=== PATIENT | female | born 1955 | race Caucasian/White ===

== ENCOUNTER → 2020-10-22 10:30 | Outpatient (CLI) | payer MEDICARE, SELFPAY ==
[2019-10-29 14:54] VITALS: BMI 29.0
--- NOTE | 2020-10-22 10:45 | RAD_ITS ---
STUDY: X-RAY CHEST REASON FOR EXAM: Female, 64 years old. HX of breast ca. TECHNIQUE: PA and lateral views of the chest. COMPARISON: None. FINDINGS: Surgical clips are seen in the right axillary region. Scattered calcified granulomas. The lungs are clear. There is no demonstrated pleural abnormality. Normal size heart. Normal mediastinum and emily. Normal visualized pulmonary arteries. There is atherosclerotic calcification of the aortic arch with tortuosity. There are diffuse degenerative changes of the visualized thoracic spine. Normal visualized ribs, clavicles, and shoulders. There is no demonstrated abnormality of the visualized soft tissue structures of the upper abdomen. RAD/Chest PA and Lateral IMPRESSION: No acute abnormality is seen. Electronically Signed: Ricardo Jaquez, at 14:00 EST , Service support ,
== END ==
PROVIDERS: PCP Family Medicine; Referring Provider Internal Medicine Medical Oncology; Visit Provider Internal Medicine Medical Oncology
DX: Z85.3 Personal history of malignant neoplasm of breast (principal)
CPT/HCPCS: 71046

== ENCOUNTER 2022-03-21 14:43 | Inpatient (IN) | payer MEDICARE, SELFPAY ==
--- NOTE | 2022-03-17 12:35 | EKG12_ITS ---
Test Reason : PRE-OP Blood Pressure : / mmHG Vent. Rate : 055 BPM Atrial Rate : 055 BPM P-R Int : 198 ms QRS Dur : 080 ms QT Int : 422 ms P-R-T Axes : 028 021 050 degrees QTc Int : 403 ms Sinus bradycardia Otherwise normal ECG Confirmed by AZIZA HORTON, JOSH ([id number]), managing editor ERMELINDA ELLIS ([id number]) on 03/18/2022 10:26:35 AM Referred By: Caesar Weldon Confirmed By:JOSH ERVIN MD
[2022-03-17 13:33] LABS: Hematocrit 37.9 % (37-47); Hemoglobin 12.2 g/dL (12.0-15.0); Mean Corp Hgb Conc 32.2 g/dL (32-36); Mean Corpuscular Hgb 30.5 pg (27.0-32.0); Mean Corpuscular Volume 94.8 fL (81-99); Platelet Count 267 K/mm3 (150-450); RBC Distribution Width CV 12.2 % (11.6-14.6); RBC Distribution Width SD 42.6 fl (35.1-43.9)
[2022-03-17 13:49] LABS: International Normalized Ratio 1.1; Prothrombin Time (Protime)PT. 13.4 SECONDS (11.7-14.9)
[2022-03-17 13:50] LABS: Partial Thromboplast Time 30.5 Seconds (24.1-36.2)
[2022-03-17 13:58] LABS: AST(SGOT) 13 U/L (15-37); Alanine Aminotransfer ALT/SGPT 24 U/L (13-56); Albumin, Serum 3.5 g/dL (3.2-5.0); Alkaline Phosphatase 22 U/L (45-117); Anion Gap 5 (5-15); BUN 17 mg/dL (7-18); BUN/Creat Ratio 19.2 RATIO (10-20); Chloride 107 mmol/L (98-107); Creatinine, Serum 0.89 mg/dL (0.55-1.02); EST Glomerular Filtration Rate 68 mL/min (>60); Est Glom Filt Rate - Afr Amer 82 mL/min (>60); Globulin 3.6 g/dL (2.2-4.2); Glucose 149 mg/dL (74-106); Magnesium 2.3 mg/dL (1.6-2.6); Potassium 3.5 mmol/L (3.5-5.1); Protein, Total 7.1 g/dL (6.4-8.2); Sodium Level 140 mmol/L (136-145)
--- NOTE | 2022-03-20 21:59 | HP.PCM_ITS ---
History and Physical Date of Admission: 03/21/22 Surgical History and Physical Kaylynn Plaza, a 66 year old female 2 0 0 0 2, presents for FAM/BSO on March 21, 2022. -- 17 cm Right Cystic Ovary -- Recent CT scan found ovarian cyst and gall stone. States that she gets dull right side pain at times. Hx of breast cancer, states that she has not had menses since taking tamoxifen in 2004, bilateral mastectomy completed. No known drug allergies, currently taking no medications. Cyst found in ovary which began seen in ER, 02/20/22. Kaylynn claims it started Nausea went to ER and has been present 02/20/22. It occurs since 02/20/22. It is located in the Ovary. Associated signs and symptoms are mastectomy for BRCA. Additional comments are: Had nausea, also has gall stone. Additional comments are: CT scan showed complex ovary; u/s shows 17 cm right ovary with single septation and normal EM stripe; CA 125 was high normal. MEDICATIONS HISTORY: Patient is also takin. No Meds ALLERGIES: No Known Drug Allergies Infections - none Illnesses - none Hospitalizations - Breast cancer in 2004 Review of Systems: GENERAL - Denies fever, or chills SKIN - Denies skin changes EYES - Denies visual changes EARS - Denies difficulty hearing NOSE - Denies nasal congestion or bleeding MOUTH - Denies sore throat or difficulty swallowing NECK - Denies pain or swelling RESPIRATORY - Denies shortness of breath or wheezing CARDIOVASCULAR - Denies palpitations or chest pain GASTROINTESTINAL - Right side dull pain at times. GENITOURINARY - Denies dysuria, frequency of urination, incontinence of urine MUSCULOSKELETAL - Denies joint or muscle pain NEUROLOGICAL - Denies localized numbness or weakness PSYCHIATRIC - Denies depression or anxiety ENDOCRINE - Denies heat or cold intolerance, weight loss or gain HEMATO-IMMUNOLOGIC - Denies excesive bleeding with cuts SOCIAL HISTORY: Alcohol Use - denies drinking Smoking - denies smoking Diet - no particular diet Lifestyle - Exercise - regular and active Employer - [employer] Illicit Drug Use - denies use of street drugs Sexual Activity - sexually inactive Residence - lives with Place of - [place], [place] Spouse-Sig Other Name - Aime Barnett Children Name(s) - Noel Hernandez Control - postmenopausal FAMILY HISTORY: MENSTRUAL HISTORY: LMP Known?- Postmenopausal PAST PREGNANCIES: Total Pregnancies - 2; Full Term Pregnancies - 2; Premature - 0; Abortions, Induced - 0; Abortions, Spontaneous - 0; Ectopics - 0; Multiple Births - 0; Living Children - 2 SURGICAL HISTORY: 1. Bilateral Masectomy 2004 PHYSICAL EXAM BP- 140/84 L lower arm Weight- 164.07949 lbs Height- 63 inch BMI:29.1 CONSTITUTIONAL - NAD, well nourished, and well developed SKIN - No rash, lesions, or ulcers HEENT - Normocephalic, PERRLA, EOMI NECK - No nodes, no nuchal rigidity and thyroid normal size and texture LYMPH NODES - Palpation of lymph nodes in neck and groins within normal limits LUNGS - CTA x2 without wheezes, crackles or rales CARDIAC - Regular rate and rhythm without rubs, murmurs, or gallops ABDOMEN - Without hepatosplenomegaly, distention, masses, rebound, or guarding; normal bowel sounds; no hernias EXTREMITIES - No edema or calf tenderness NEUROLOGICAL - Cranial nerves II-XII grossly intact PSYCHIATRIC - A and O to time, place, person, mood and affect External Genitial Vagina - non-tender without lesions Urethra/Urethral Meatus - non-tender Bladder - non-tender Vagina - loss of rugae Cervix - without cervical motion tenderness and has normal size and features without evident lesions Uterus - 5-6 cm in size, mobile and nontender Adnexa - clear without massess or tenderness and 15 cm cystic mass ASSESSMENT/PLAN: 1. Ovarian Cyst Ot/unspec Large cystic mass but CA-125 and u/s suggests benign process. Discussed options and will proceed with FAM/BSO. Discussed RBAs and all questions answered.
[2022-03-21] VITALS (11 sets, daily range): BP systolic 124–202; BP diastolic 58–104; PULSE 53–58; RESP 16; TEMP 36–37.3; O2SAT 96–100; BMI 28.8; BMI 29.7; BMI 29.8
[2022-03-21 10:40] LABS: Bedside Glucose 78 mg/dL (74-106)
[2022-03-21] MEDS: Lactated Ringers 1,000 ML 40 ML IV (10:49)
[2022-03-21] MEDS: Gabapentin 600 MG Tablet PO (10:52)
[2022-03-21] MEDS: Acetaminophen 500 MG Tablet 1000 MG PO ×3 (10:52→23:10)
--- NOTE | 2022-03-21 10:53 | SUR.PREOP ---
PATIENT STATES SHE HAD A BILATERAL MASTECTOMY 17 YEARS AGO, LYMPH NODES TAKEN FROM BOTH SIDES, BUT FEWER TAKEN ON THE LEFT. PATIENT STATES SHE HAS HAD IV'S ON THE LEFT ARM IN THE PAST.
[2022-03-21] MEDS: Cefazolin 2 GM in 0.9% Normal Saline 100 ML IV (13:05)
--- NOTE | 2022-03-21 13:08 | OP.PCM_ITS ---
Report of Operation Date of Procedure: 03/21/22 Pre-Operative Diagnosis: Large Ovarian Cyst Post-Operative Diagnosis: Large Ovarian Cyst Surgery/Procedure Performed:: Total abdominal hysterectomy and bilateral salpingo-oophorectomy Description of Surgical Findings:: 6 cm uterus with 17 cm right ovarian cyst. 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 Surgeon: Caesar Weldon audio specialist: Cherry Sibley Type of Anesthesia: General (Endotracheal) Anesthesiologist: Jarad Davies Specimen's removed: Uterus and bilateral fallopian tubes and ovaries Drains: Ochoa to straight drain Estimated Blood Loss (mL): 100 cc Fluids Replaced: Crystalloid Description of Procedure: Surgeon: Caesar Weldon MD, FACOG Indications: This is a 66-year-old patient who was recently noted to have a 17 cm cystic ovary. There is a single septation and CA125 suggest that this is benign. Given this the patient desires that we proceed with the above procedure. She has been counseled regarding the risk and indications of this procedure including the possibility of bleeding, infection, and injury to surrounding structures such as bowel bladder. All questions were answered. Procedure: Patient was taken to the operating room where after induction of general anesthesia she was prepped and draped in the usual sterile fashion. A Ochoa catheter was placed. The abdomen was entered through a midline incision and peritoneal cavity was entered bluntly. A large right cystic ovary was delivered and right infundibulopelvic ligament was ligated with multiple interrupted 0 Vicryl sutures. This was sent to pathology for frozen section which eventually returned a diagnosis of likely benign mucinous cystadenoma. [place] retractor was placed. Round ligaments were identified and ligated with 0 Vicryl suture. Infundibulopelvic ligaments were ligated x2. A bladder flap was developed and progressive bites were then taken down on either side of the uterine cervix ligating each pedicle with 0 Vicryl suture. Final bites across the vaginal cuff incorporated the uterosacral ligaments into the vaginal cuff using 0 Vicryl suture and multiple [id number] sutures were placed across the vaginal cuff. Vaginal cuff and pelvic sidewall pedicles were oversewn where necessary to achieve hemostasis. Santosh was placed to help with postoperative hemostasis after the pelvis was copiously irrigated removing all clot. [place] retractor was removed and peritoneum was closed with running 3-0 Vicryl suture. Fascia was closed with running looped 0 PDS suture. Subcutaneous tissue was copiously irrigated with saline solution before closing with 3-0 Vicryl suture. 3-0 Monocryl suture was then used in running fashion to reapproximate skin edges area and Steri-Strips placed across the incision. A Mepilex dressing was placed across the incision. Patient tolerated the procedure well was taken to recovery room in satisfactory condition; sponge instrument and needle counts were all reportedly correct. Estimated blood loss for the case was 100 cc. Ancef 2 g IV was given prior to beginning the operative procedure. There were no apparent complications of the surgery. Specimen to pathology was uterus and bilateral fallopian tubes and ovaries. Grafts/Implants Used: None Complications None Admit VTE Documentation VTE Present on Admission: Yes VTE Mechan Device Prophylaxis: SCD's VTE Pharm Prophylaxis ordered?: Yes
--- NOTE | 2022-03-21 13:35 | OV_PTH ---
PATIENT: KEVEN HANKS LOC: MS3 U#:[id number] AGE/SX: 66/F ROOM: [facility] [place] RE03/21/[address]: Dr. Caesar Weldon MD : 1955 BED: 1 DIS: 03/23/2022 SPEC #: [id number] RECD: 03/21/22 13:43 STATUS: SARAH MARTINEZ #: [id number] BECKA: 03/21/22 13:[address]: Caesar Weldon DEPT: SURGICAL PATHOLOGY RECD BY: Ligia Cleary ENTERED: 03/22/22 08:10 SP TYPE: OVARY OTHR DR: Dr. Anel Rosario MD Tissues: A - OVARIAN CYST B - Uterus, NOS Procedures: Frozen Section (charge) Special Stain Group II Mucicarmine Stain (control) Surgery Specimen Level V HEADER OPERATION: ERAS, Hysterectomy, total abdominal hysterectomy, bilateral salpingectomy PRE-OP DIAGNOSIS: Ovarian cyst TISSUE SUBMITTED: A - Right ovary and fallopian tube, B - Cervix, uterus, left fallopian tube and ovary FROZEN SECTION DIAGNOSIS A. Right fallopian tube and ovary, right salpingo-oophorectomy: Mucinous cystadenoma. Negative for malignancy. SJ:adryan 03/22/2022 MICROSCOPIC DIAGNOSIS A. 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 Fallopian tube - no pathologic diagnosis. See comment. B. Cervix, uterus, left fallopian tube and ovary, total abdominal hysterectomy and left salpingo-oophorectomy: Cervix ? chronic cystic cervicitis. Endometrium ? inactive endometrium with cystic changes. Myometrium ? intramural leiomyoma (0.3 cm in greatest dimension). - Focal adenomyosis. Left fallopian tube - no pathologic diagnosis. Left ovary ? Simple serous cystadenofibroma (1.5 cm in greatest dimension). - Kathia tumor (0.4 cm in greatest dimension). DEANNA:adryan 03/23/2022 COMMENT A. Mucin stain with matched in used in the evaluation. Tumor cells are positive for mucin. Case has been reviewed in consultation with Dr. Murguia who concurs with the above diagnosis. IDC:AM MICROSCOPIC DESCRIPTION Slides are reviewed. GROSS DESCRIPTION A - Received fresh for frozen section diagnosis labeled with the patient's name is a specimen designated right fallopian tube and ovary. The specimen consists of a salpingo-oophorectomy specimen consisting of a large cystic ovary and overlying fallopian tube. The cystic ovary measures 22 x 20 x 13 cm and weighs 2070 gm. The outer surface is smooth and is inked black. Sections reveal multiloculated cystic ovary filled with clear mucoid fluid. No papillations are identified. The cyst wall measures 0.1 to 0.2 cm in thickness. Presser All Around sections from the cystic ovary are submitted for frozen section diagnosis. The fallopian tube measures 4 cm in length and 0.5 cm in diameter. The fimbrial end is identified. Sections reveal unremarkable cut surfaces. No tubo-ovarian adhesions are noted. Presser All Around sections are submitted in six cassettes as follows: 1 ? frozen section, cystic ovary, 2 - fallopian tube, entirely submitted, 3-6 - cystic ovary. / SJ:rg 03/22/2022 B - Received in fixative is one container labeled with the patient's name and designated cervix, uterus, left fallopian tube and ovary. The specimen consists of a hysterectomy specimen consisting of uterus with cervix and attached left fallopian tube and ovary. The uterus with cervix weighs 36 gm and measures 8.5 x 4.5 x 2.5 cm. The serosal surface is londono, glistening. The ectocervical mucosa is unremarkable. The external os is pinpoint in contour. The endocervical canal measures 3.6 cm in length and the endocervical mucosa is londono, glistening and unremarkable. The triangular endometrial cavity measures 4 cm in length and up to 1.5 cm in width. The endometrium is londono, glistening without any mass lesion and measures <0.1 cm in thickness. Sections of the uterine wall reveal one small nodular mass measuring 0.3 cm in greatest dimension. The uninvolved uterine wall measures up to 1.2 cm in thickness. The left fallopian tube measures 6.5 cm in length and 0.4 cm in diameter. The fimbrial end is identified. No tubo-ovarian adhesions are noted. The left ovary measures 2 x 1 x 0.7 cm. Sections reveal two cysts measuring 0.2 and 0.3 cm in greatest dimension. Presser All Around sections are submitted in eight cassettes as follows: 1 - anterior cervix, 2 - posterior cervix, 3 & 4 - anterior uterine wall, 5 & 6 - posterior uterine wall (6 also contains the small nodular mass), 7 - left fallopian tube, 8 - left ovary, entirely submitted. / DEANNA:adryan 03/22/2022 TC:1 CPT: 82496 x2, 31832, 09268
[2022-03-21] MEDS: Ketorolac 15 MG/ML Vial IV ×2 (17:11→23:09)
[2022-03-21] MEDS: oxyCODONE 5 MG Tablet PO (17:12)
[2022-03-21] MEDS: 0.9% Saline Lock 10 ML Syringe IV (17:12)
[2022-03-21] MEDS: Cefazolin 1 GM/50 ML BAG IV (21:33)
[2022-03-21] MEDS: Enoxaparin 40 MG/0.4 ML Syringe SC (21:33)
[2022-03-21] MEDS: Docusate Sodium 100 MG Capsule PO (21:33)
[2022-03-21] MEDS: Ondansetron ODT 4 MG Tablet PO (23:26)
[2022-03-22 00:42] VITALS: BP 164/63; PULSE 61; RESP 16; TEMP 37; O2SAT 96; BMI 29.8
[2022-03-22] MEDS: Cefazolin 1 GM/50 ML BAG IV (04:33)
[2022-03-22 04:38] VITALS: BP 149/63; PULSE 78; RESP 16; TEMP 36.9; O2SAT 96; BMI 29.8
[2022-03-22] MEDS: Ketorolac 15 MG/ML Vial IV ×4 (05:06→23:06)
[2022-03-22] MEDS: Acetaminophen 500 MG Tablet 1000 MG PO ×4 (05:06→23:06)
[2022-03-22 06:24] LABS: Hemoglobin 11.1 g/dL (12.0-15.0); Mean Corp Hgb Conc 32.6 g/dL (32-36); Mean Corpuscular Hgb 30.7 pg (27.0-32.0); Mean Corpuscular Volume 93.9 fL (81-99); Mean Platelet Vol. 8.9 fl (6.2-12.0); Platelet Count 303 K/mm3 (150-450); RBC Distribution Width CV 12.4 % (11.6-14.6); RBC Distribution Width SD 42.8 fl (35.1-43.9); Red Blood Count 3.62 M/mm3 (4.2-5.4); White Blood Count 8.2 K/mm3 (4.4-11.0)
[2022-03-22 06:53] LABS: EST Glomerular Filtration Rate 77 mL/min (>60); Est Glom Filt Rate - Afr Amer 93 mL/min (>60); Estimated Creatinine Clearance 56.45 ml/min
[2022-03-22 07:16] VITALS: O2SAT 96
[2022-03-22 07:18] VITALS: BP 151/62; PULSE 69; RESP 16; TEMP 36.9; O2SAT 96
--- NOTE | 2022-03-22 10:10 | CASEMGMT ---
RN CM Face to Face with patient for initial transition planning/care coordination assessment. RN CM introduced self and role at [facility]. Patient lying in bed, alert and oriented. Patient willing to participate in assessment and is able to answer all questions appropriately. Care providers, pharmacy, and demographics verified. Patient wishes to discharge home, denies need for home health at this time. Patient states she has no further needs or concerns at this time. CM to follow for discharge planning needs that may arise. 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 Patient states she is independent and able to ambulate stairs. Transportation: Driving service, son DME/HHC: Patient states she has shower chair, cane, and grab bars at home. No previous HHC or SNF. Disposition Plan: Patient to discharge home with family support and follow-up plans in place. Elsie GUADALUPE, RN, CM
[2022-03-22] MEDS: Docusate Sodium 100 MG Capsule PO ×2 (10:31→22:06)
[2022-03-22] MEDS: Enoxaparin 40 MG/0.4 ML Syringe SC (10:31)
[2022-03-22] MEDS: 0.9% Saline Lock 10 ML Syringe IV ×2 (11:43→23:07)
--- NOTE | 2022-03-22 12:54 | PCM.PN.OB ---
Subjective Subjective Pt without complaints. Tolerating diet better. Denies flatus. Ochoa still in this AM. Objective Data Objective Data Wound CDI covered with Mepilex dressing. Minimal vaginal bleeding. CBC OK and UOP OK. Vital Signs: Vital Signs Temp Pulse Resp BP Pulse Ox 98.4 F 69 16 151/62 H 96 03/22/22 07:18 03/22/22 07:18 03/22/22 07:18 03/22/22 07:18 03/22/22 07:18 Oxygen Flow Rate (L/min) 2 Oxygen Delivery Method Room Air Weight: 168 lb 3.403 oz Body Mass Index (BMI) 29.7 Intake & Output: Intake and Output for Last 24 Hours 03/20/22 03/21/22 03/22/22 23:59 23:59 23:59 Intake Total 2497 / 2497 50 / 50 Output Total 1900 / 1900 275 / 275 Balance 597 / 597 -225 / -225 Lab / Micro Data Result Diagrams: 03/22/22 05:48 03/22/22 05:48 Labs: Laboratory Results - last 24 hr 03/22/22 05:48: WBC 8.2, RBC 3.62 L, Hgb 11.1 L, Hct 34.0 L, MCV 93.9, MCH 30.7, MCHC 32.6, RDW Std Deviation 42.8, RDW Coeff of Nayeli 12.4, Plt Count 303, MPV 8.9 03/22/22 05:48: Creatinine 0.80, Estim Creat Clear Calc 56.45, Est GFR (MDRD) Af Amer 93, Est GFR (MDRD) Non-Af 77 Micro: Microbiology 03/21/22 10:25 Interface Orders SARS-CoV-2 Antigen (Rapid) - Final Assessment & Plan (1) Ovarian cyst, complex: PLAN: Doing well POD 1 s/p FAM/BSO for large right ovarian cyst. Will try abdominal binder and encourage ambulation/shower. Continuing present care. Anticipate release tomorrow.
[2022-03-22 14:02] VITALS: BP 156/80; PULSE 60; RESP 16; TEMP 36.8; O2SAT 100
[2022-03-22 20:25] VITALS: BP 146/61; PULSE 58; RESP 16; TEMP 36.6; O2SAT 98; BMI 29.8
[2022-03-23 02:13] VITALS: BP 152/61; PULSE 56; RESP 16; TEMP 36.6; O2SAT 96
[2022-03-23] MEDS: Acetaminophen 500 MG Tablet 1000 MG PO (05:24)
[2022-03-23] MEDS: Ketorolac 15 MG/ML Vial IV (05:24)
[2022-03-23] MEDS: 0.9% Saline Lock 10 ML Syringe IV (05:25)
[2022-03-23 07:48] VITALS: O2SAT 95
[2022-03-23 08:15] VITALS: BP 159/64; PULSE 60; RESP 16; TEMP 36.7; O2SAT 97
[2022-03-23] MEDS: Docusate Sodium 100 MG Capsule PO (09:23)
[2022-03-23] MEDS: Enoxaparin 40 MG/0.4 ML Syringe SC (09:23)
--- NOTE | 2022-03-23 09:23 | PCM.PN.OB ---
Subjective Subjective Patient without complaints. Tolerating pain well without narcotic pain medication relying on IV Toradol and p.o. Tylenol. Positive flatus. Minimal vaginal bleeding reported. Wound is without bleeding with small amount of oozing noted on dressing. Objective Data Objective Data Vital Signs: Vital Signs Temp Pulse Resp BP Pulse Ox 98.1 F 60 16 159/64 H 97 03/23/22 08:15 03/23/22 08:15 03/23/22 08:15 03/23/22 08:15 03/23/22 08:15 Oxygen Flow Rate (L/min) 2 Oxygen Delivery Method Room Air Weight: 168 lb 3.403 oz Body Mass Index (BMI) 29.7 Intake & Output: Intake and Output for Last 24 Hours 03/21/22 03/22/22 03/23/22 23:59 23:59 23:59 Intake Total 2497 / 2497 50 / 50 Output Total 1900 / 1900 1100 / 1100 750 / 750 Balance 597 / 597 -1050 / -1050 -750 / -750 Lab / Micro Data Result Diagrams: 03/22/22 05:48 03/22/22 05:48 Micro: Microbiology 03/21/22 10:25 Interface Orders SARS-CoV-2 Antigen (Rapid) - Final Assessment & Plan (1) Ovarian cyst, complex: PLAN: Doing well postoperative day #2 status post FAM/BSO. Will discharge to home with routine instructions.
--- NOTE | 2022-03-23 09:24 | PCM.DC ---
Discharge Instructions Diet Discharge Diet: No restrictions (do what you feel comfortable, but do not over do it. You may climb stairs, just use caution and hold the railing.) Activity May resume sexual activity in: 6 weeks (nothing in the vagina.) Lifting Restrictions: 25 pounds for 6 weeks. Additional Activity Instructions:: Nothing in the vagina for 6 weeks please; no lifting more than 20-25 lbs for 6 weeks. Use Ibuprophen 800 mg orally every 8 hours as needed for pain. Can also add Tylenol 1000 mg every 8 hours if needed for pain. Drink lots of water. Call if bleeding more than a pad per hour. Use the colace as constipation is a big issue after this type of surgery. Steps and walking are OK. Activity is encouraged but do not over do it !! Dressing / Incision Call your doctor if your incision/area has: Continuous Slow Oozing, Sudden Increased Bleeding, Increased Pain/ Swelling, Increased Redness and Foul Smelling Discharge Call your doctor if you observe: Fever of 101 or Higher, Inability to urinate, Inability to have a bowel movement, Using more than 1 pad per hour and - (Some vaginal bleeding may be noted for up to 4-8 weeks.) Cleanse incision/area with: - (Let the soapy water run over your incision, rinse and pat dry.) Additional Dressing/Incision Instructions:: The white strips (Steri Strips) on your incision will fall off on their own. Follow Up Care Please Follow Up With: Caesar Weldon MD When: Call [phone] for an appointment to be seen in 2 weeks. Test Results: Test results from this visit will be discussed in further detail at your follow-up appointment, if applicable. Discharge Plan Admission Admit Date/Time: 03/21/22 14:43 Primary Reason for Your Visit: Abdominal Hysterectomy and Bilateral Ovarian Removal Attending Provider: Caesar Weldon Primary Care Provider: Anel Rosario Discharge Orders/Prescriptions Prescriptions: New docusate sodium 100 mg tablet 100 mg PO BID PRN (Reason: constipation) Qty: 60 RF: 1 Continued Co Q-10 100 mg Softgel 100 MG capsule 120 mg PO DAILY RF: 0 Garlic 500 MG tablet 1,000 mg PO DAILY RF: 0 Calcium Carb/Vitamin D 1 tab PO TID RF: 0 Vision Formula Softgel capsule 1 cap PO DAILY RF: 0 elderberry fruit 200 mg Capsule 200 mg PO DAILY RF: 0 Referrals / Follow Up: Anel Rosario MD [Primary Care Provider] - Disposition Disposition (needs filled in before D/C Order can be placed): Home, Self Care
[2022-03-23 11:23] VITALS: BP 169/87; PULSE 64; RESP 16; TEMP 36.6; O2SAT 100
== END 2022-03-23 11:43 | disposition home or self-care (01) | DRG 743 ==
LOC: SDC 16:17 → MS3 16:17
PROVIDERS: Anesthesiology; Admitting Provider Obstetrics & Gynecology; PCP Family Medicine; Referring Provider Obstetrics & Gynecology; Visit Provider Obstetrics & Gynecology
PROC: 0UT90ZZ Resection of Uterus, Open Approach (ICD-10-PCS; CPT 58150; principal; 2022-03-21 11:40)
DX: D27.0 Benign neoplasm of right ovary (principal); K80.20 Calculus of gallbladder without cholecystitis without obstruction; Z85.3 Personal history of malignant neoplasm of breast; Z90.10 Acquired absence of unspecified breast and nipple
CPT/HCPCS: 36415; 80053; 82565; 82962; 83735; 85027; 85610; 85730; 86850; 86900; 86901; 87426; 88305; 88307; 88313; 88331; 93005; 94762; 99251; J7120; A4216; G0463; J2405; J3475

== ENCOUNTER 2023-03-14 08:19 | Day surgery (SDC) | payer MEDICARE, SELFPAY ==
[2023-03-14] MEDS: Lactated Ringers 1,000 ML 15 ML IV (08:49)
[2023-03-14 08:51] VITALS: BP 179/65; PULSE 60; RESP 16; TEMP 36.7; O2SAT 100; BMI 27.2
--- NOTE | 2023-03-14 09:04 | H&P.OPEN ---
HPI - General HPI Narrative KEVEN HANKS, is a 67 F who presents for screening colonoscopy. She denies abdominal pain or blood in the stool. She reports that she has never had a colonoscopy in the past. No family history of colon cancer. [facility] Medical History (Updated 03/06/23 @ 15:00 by Anjelica Andujar) Back pain Cancer Cardiology follow-up encounter Chest pain Gallstones Gastric reflux Heart murmur Heartburn High cholesterol History of bilateral breast cancer History of echocardiogram History of edema History of stress test Hypertension Lymph edema Macular degeneration Nausea & vomiting Non-smoker Ovarian cyst Ovarian cyst, complex PONV (postoperative nausea and vomiting) Screening for colon cancer Shortness of breath on exertion Syncope Wears glasses Home Medications Co Q-10 100 mg Softgel 200 mg PO DAILY 02/09/17 [History Last Taken Unknown] Garlic 500 mg PO DAILY 02/09/17 [History Last Taken Unknown] elderberry fruit 200 mg capsule 200 mg PO DAILY PRN COMMON COLD PREVENTION 03/15/22 [History Last Taken Unknown] Breast prostheses(bilateral) #6 ea 01/19/23 [Rx Last Taken Unknown] Mastectomy bra #1 ea 01/19/23 [Rx Last Taken Unknown] Ca 600 mg-D3 20 mcg-mag oxide 50 da-Yi-iahqok-manganese-boron tablet 1 tab PO BID SUPPLEMENT 03/06/23 [History Last Taken Unknown] lutein 20 mg tablet 20 mg PO DAILY VISION SUPPLEMENT 03/06/23 [History Last Taken Unknown] omega-3 fatty acids-vitamin E 1,000 mg capsule 1 cap PO DAILY VISION HEALTH SUPPLEMENT 03/06/23 [History Last Taken Unknown] Allergy/AdvReac Type Severity Reaction Status Date / Time No Known Allergies Allergy Verified 03/14/23 08:49 Family History Father Hypertension Mother Hypertension Surgical History H/O total hysterectomy with removal of both tubes and ovaries H/O: hysterectomy History of mastectomy History of total mastectomy Hx of breast biopsy Social History (Updated 01/20/23 @ 16:24 by Liyah Christie) household members: spouse Smoking Status: Never smoker Past Medical/Surgical History Planned Operation Planned Operative Procedure/s: COLONOSCOPY Previous Hospitalizations/Surgeries HX Hospitalizations: Yes (03/2022 [facility]) Any Problems With Anesthesia: No You/Your Family Experience Fever (Hyperthermia) With Anes: No Cholinesterase deficiency: No Cardiovascular Hx of Irregular Heartbeat and/or Afib: Yes Hx Heart Attack: No Hx Congestive Heart Failure: No Hx Hypertension: No Hx Pacemaker: No Respiratory Hx Chronic Obstructive Pulmonary Disease (COPD): No Hx Asthma: No Hx Emphysema: No Hx Sleep Apnea: No CPAP: Yes Hx Respiratory Tract Infection/Cold (presently): No Do You Snore Loudly (louder than talking or can be heard): No Do You Often Feel Tired/ Fatigued/ Sleepy Dring Daytime?: Yes Has Anyone Observed You Stop Breathing During Sleep?: Yes Result (for STOP score): Positive Smoking Status: Never smoker Gastrointestinal Hx Gastroesophageal Reflux: No Hx Ulcer: No Neurological Hx Seizures: No Hx Head/Neck Injury: No Hx Headaches: No Hx Back Injury/Pain: Yes Does patient have nerve stimulator: No Miscellaneous Recent Exposure to Contagious Disease: No Allergies No Known Allergies Allergy (Verified 03/14/23 08:49) Discharge Is Pt Admitted From a Jail, or a Nursing Home: No Who Could Help: After D/C, Where Do you Plan to Go: Return Home Vital Signs Vital Signs Vital Signs: 03/14/23 08:51 03/14/23 08:51 Temperature 98.1 F Temperature Source Temporal Pulse Rate 60 Respiratory Rate 16 Respiratory Pattern Normal Blood Pressure 179/65 H Blood Pressure Mean 103 Blood Pressure Source Monitor Blood Pressure Position Semi-Fowlers Blood Pressure Location Left Leg Pulse Ox 100 Oxygen Delivery Method Room Air Weight Weight: 158 lb 11.725 oz Body Mass Index (BMI) 27.2 Physical Exam Const alert and oriented x3 HEENT normocephalic Eyes PERRL Resp normal respiratory effort and normal air movement Cardio regular rate and regular rhythm GI soft to palpation, non-tender and non-distended Extremity normal to inspection Assessment & Plan Assessment/Plan (1) Screening for colon cancer: PLAN: I explained endoscopy in detail to the patient. I explained the risks including but not limited to stroke or heart attack with anesthesia, perforation of the GI tract, bleeding, infection. I explained that any of these could necessitate further emergency surgery. The patient understands and all questions were answered sufficiently. The patient wishes to proceed with procedure. Anthony Salamanca MD Pager: [facility] [address] [place] [address], [address] [place] [address] Office: Surgery Risks - Colonoscopy Risks Include but are not Limited To: Risks include but are not limited to: Bleeding, perforation requiring further surgery, inability to complete colonoscopy requiring barium enema.
--- NOTE | 2023-03-14 09:35 | OP.COLON_ITS ---
Patient Name: Kaylynn Plaza Procedure Date: 03/14/2023 9:11 AM Date of : 1955 Age: 67 Procedure: Colonoscopy Indications: Screening for colorectal malignant neoplasm Providers: Anthony Salamanca MD Referring MD: Anthony Salamanca MD Medicines: Monitored Anesthesia Care Patient Profile: This is a 67 year old female. Refer to note in patient chart for documentation of history and physical. Last Colonoscopy: none. The patient's first colonoscopy is today. Complications: No immediate complications. Procedure: Pre-Anesthesia Assessment: - Prior to the procedure, a History and Physical was performed, and patient medications and allergies were reviewed. The patient's tolerance of previous anesthesia was also reviewed. The risks and benefits of the procedure and the sedation options and risks were discussed with the patient. All questions were answered, and informed consent was obtained. Prior Anticoagulants: The patient has taken no previous anticoagulant or antiplatelet agents. After reviewing the risks and benefits, the patient was deemed in satisfactory condition to undergo the procedure. After I obtained informed consent, the scope was passed under direct vision. Throughout the procedure, the patient's blood pressure, pulse, and oxygen saturations were monitored continuously. The Colonoscope was introduced through the anus and advanced to the cecum, identified by appendiceal orifice and ileocecal valve. The colonoscopy was performed without difficulty. The patient tolerated the procedure well. The quality of the bowel preparation was good. Scope In: 9:20:51 AM Scope Withdrawal Time 0 hours 6 minutes 0 seconds Scope Out: 9:33:25 AM Total Procedure Duration Time 0 hours 12 minutes 34 seconds Findings: The entire examined colon appeared normal on direct and retroflexion views. Impression: - The entire examined colon is normal on direct and retroflexion views. - No specimens collected. Recommendation: - Discharge patient to home. - Resume previous diet. - Continue present medications. - Repeat colonoscopy is not recommended due to current age (66 years or older) for screening purposes. Procedure Code(s): --- Professional --- 83609, Colonoscopy, flexible; diagnostic, including collection of specimen(s) by brushing or washing, when performed (separate procedure) Diagnosis Code(s): --- Professional --- Z12.11, Encounter for screening for malignant neoplasm of colon CPT copyright 2017 [employer]. All rights reserved. The codes documented in this report are preliminary and upon death surveys coder review may be revised to meet current compliance requirements. Anthony Salamanca MD 03/14/2023 9:34:41 AM This report has been signed electronically. Number of Addenda: 0 Note Initiated On: 03/14/2023 9:11 AM
[2023-03-14 09:36] VITALS: BP 147/72; BP 179/65; PULSE 49; RESP 12; TEMP 36.2; O2SAT 91
--- NOTE | 2023-03-14 09:36 | OP.CCLET_ITS ---
03/14/2023 Anel Rosario Md Re : Colonoscopy procedure for Kaylynn Plaza Dear Abraham This procedure was performed on Tuesday, March 14, 2023. My impressions and recommendations are as follows: Impressions : - The entire examined colon is normal on direct and retroflexion views. - No specimens collected. Recommendations : - Discharge patient to home. - Resume previous diet. - Continue present medications. - Repeat colonoscopy is not recommended due to current age (66 years or older) for screening purposes. My findings are described in the full procedure note, which is enclosed. If I can be of further assistance, please feel free to contact me at Doctor phone number(s): , Work: . Sincerely, Anthony Salamanca MD 03/14/2023 9:34:41 AM This report has been signed electronically.
[2023-03-14 09:40] VITALS: BP 150/74; BP 179/65; PULSE 54; RESP 18; O2SAT 92
[2023-03-14 09:45] VITALS: BP 149/70; BP 150/71; BP 179/65; PULSE 52; PULSE 54; RESP 14; RESP 18; O2SAT 50; O2SAT 97
[2023-03-14 09:50] VITALS: BP 149/70; BP 179/65; PULSE 52; RESP 16; TEMP 36.3; O2SAT 98
[2023-03-14 10:15] VITALS: BP 179/65
== END 2023-03-14 10:34 | disposition home or self-care (01) ==
LOC: EN 08:25 → AC 08:26
PROVIDERS: PCP Family Medicine; Referring Provider Family Medicine; Visit Provider Surgery
PROC: 0DJD8ZZ Inspection of Lower Intestinal Tract, Via Natural or Artificial Opening Endoscopic (ICD-10-PCS; CPT 45378; principal; 2023-03-14 09:25)
DX: Z12.11 Encounter for screening for malignant neoplasm of colon (principal); I10 Essential (primary) hypertension; E78.00 Pure hypercholesterolemia, unspecified; Z85.3 Personal history of malignant neoplasm of breast
CPT/HCPCS: G0121; J7120; J2405